=== PATIENT | male | born 1960 | race Caucasian/White ===

== ENCOUNTER 2018-11-08 17:44 | Outpatient (REF) | payer MEDICARE, SELFPAY ==
[2018-11-08 18:49] LABS: ALT 68 U/L (12-78); AST 35 U/L (15-37); Albumin 4.3 g/dL (3.4-5.0); Alkaline Phosphatase 98 U/L (46-116); Anion Gap 11.2 mmol/L (3-11); BUN 12 mg/dL (7-18); Bilirubin, Total 0.4 mg/dL (0.2-1.0); CO2 26.8 mmol/L (21.0-32.0); CREATININE 1.06 mg/dL (0.70-1.30); Calcium 9.1 mg/dL (8.5-10.1); Calculated LDL 81 mg/dL; Chloride 103 mmol/L (98-107); Cholesterol 145 mg/dL (50-200); Glucose 96 mg/dL (70-100); HDL Cholesterol 30 mg/dL (40-60); Potassium 4.3 mmol/L (3.5-5.1); Sodium 141 mmol/L (136-145); Total Protein 7.6 g/dL (6.4-8.2); Triglyceride 170 mg/dL (30-150)
== END 2018-11-08 18:04 ==
LOC: NCHCN 17:44
PROVIDERS: PCP Nurse Practitioner; Visit Provider Nurse Practitioner
DX: E78.5 Hyperlipidemia, unspecified (principal); I10 Essential (primary) hypertension
CPT/HCPCS: 80053; 80061; 83721

== ENCOUNTER 2019-10-25 10:15 | Outpatient (REF) | payer MEDICARE, SELFPAY ==
[2019-10-25 16:55] LABS: ALT 71 U/L (16-63); AST 37 U/L (15-37); Albumin 4.4 g/dL (3.4-5.0); Alkaline Phosphatase 87 U/L (46-116); Anion Gap 8.6 mmol/L (3-11); BUN 17 mg/dL (7-18); Bilirubin, Total 0.4 mg/dL (0.2-1.0); CO2 28.4 mmol/L (21.0-32.0); CREATININE 1.13 mg/dL (0.70-1.30); Calcium 10.1 mg/dL (8.5-10.1); Calculated LDL 96 mg/dL (<100); Chloride 102 mmol/L (98-107); Cholesterol 157 mg/dL (<200); Glucose 112 mg/dL (74-106); HDL Cholesterol 34 mg/dL (40-60); Potassium 4.7 mmol/L (3.5-5.1); Sodium 139 mmol/L (136-145); Total Protein 7.7 g/dL (6.4-8.2); Triglyceride 137 mg/dL (<150)
== END 2019-10-25 10:35 ==
LOC: NCHCN 10:15
PROVIDERS: PCP Nurse Practitioner; Visit Provider Nurse Practitioner
DX: E78.5 Hyperlipidemia, unspecified (principal); I10 Essential (primary) hypertension
CPT/HCPCS: 80053; 80061

== ENCOUNTER 2020-10-30 10:08 | Outpatient (REF) | payer MEDICARE, SELFPAY ==
[2020-10-30 21:58] LABS: Hemoglobin A1C 5.8 % (<5.7)
== END 2020-10-30 10:09 | disposition home or self-care (01) ==
LOC: NCHCN 10:08
PROVIDERS: PCP Nurse Practitioner; Visit Provider Nurse Practitioner
DX: R73.9 Hyperglycemia, unspecified; E78.5 Hyperlipidemia, unspecified; I10 Essential (primary) hypertension
CPT/HCPCS: 80053; 80061; 83036

== ENCOUNTER 2021-10-31 11:59 | Outpatient (REF) | payer MEDICARE, SELFPAY ==
[2021-10-31 15:12] LABS: ALT 51 U/L (16-63); AST 32 U/L (15-37); Albumin 4.1 g/dL (3.4-5.0); Alkaline Phosphatase 88 U/L (46-116); Anion Gap 8.2 mmol/L (3-11); BUN 20 mg/dL (7-18); Bilirubin, Total 0.4 mg/dL (0.2-1.0); CO2 29.8 mmol/L (21.0-32.0); CREATININE 1.1 mg/dL (0.70-1.30); Calcium 9.5 mg/dL (8.5-10.1); Chloride 102 mmol/L (98-107); Glucose 108 mg/dL (74-106); Potassium 4.4 mmol/L (3.5-5.1); Sodium 140 mmol/L (136-145); Total Protein 7.9 g/dL (6.4-8.2)
[2021-10-31 15:27] LABS: Calculated LDL 81 mg/dL (<100); Cholesterol 137 mg/dL (<200); HDL Cholesterol 37 mg/dL (40-60); Triglyceride 99 mg/dL (<150)
== END 2021-10-31 12:00 | disposition home or self-care (01) ==
LOC: NCHCN 11:59
PROVIDERS: PCP Nurse Practitioner; Visit Provider Nurse Practitioner Family
DX: I10 Essential (primary) hypertension (principal); F41.8 Other specified anxiety disorders; J44.9 Chronic obstructive pulmonary disease, unspecified; F17.209 Nicotine dependence, unspecified, with unspecified nicotine-induced disorders
CPT/HCPCS: 80053; 80061

== ENCOUNTER 2023-10-26 16:41 | Outpatient (REF) | payer OTHER, MEDICARE, SELFPAY ==
[2023-10-26 18:55] LABS: Abs Immature Grans 0.02 10^3/uL (0.0-0.06); Absolute Basophil Count 0.09 10^3/uL (0.0-0.2); Absolute Eosinophil Count 0.17 10^3/uL (0.0-0.7); Absolute Lymphocyte Count 2.65 10^3/uL (1.2-3.4); Absolute Neutrophil Count 5.04 10^3/uL (1.2-6.7); Basophils % 1.1 %; HCT 50.3 % (40.0-50.0); HGB 16.3 g/dL (13.5-17.5); Immature Grans % 0.2 %; Lymphocytes % 31.3 %; MCH 31.6 pg (27.0-33.0); MCHC 32.4 % (32.0-36.0); MCV 98 fL (80-95); MPV 11.4 fL (8.0-11.0); Monocytes % 5.9 %; Neutrophils % 59.5 %; Platelet Count 164 10^3/uL (130-400); RBC 5.16 10^6/uL (4.36-5.78); RDW 12.9 % (11.8-14.1); RDW-SD 46.4 fL; WBC 8.47 10^3/uL (4.4-10.8)
[2023-10-26 19:16] LABS: ALT 39 U/L (16-63); AST 29 U/L (15-37); Albumin 4.2 g/dL (3.4-5.0); Alkaline Phosphatase 83 U/L (46-116); Anion Gap 7.8 mmol/L (3-11); BUN 12 mg/dL (7-18); Bilirubin, Total 0.49 mg/dL (0.2-1.0); CO2 29.2 mmol/L (21.0-32.0); CREATININE 1.1 mg/dL (0.70-1.30); Calcium 9.5 mg/dL (8.5-10.1); Chloride 104 mmol/L (98-107); Glucose 96 mg/dL (74-106); Potassium 4.1 mmol/L (3.5-5.1); Sodium 141 mmol/L (136-145); Total Protein 7.8 g/dL (6.4-8.2)
[2023-10-26 19:21] LABS: Hemoglobin A1C 5.7 % (<5.7)
== END 2023-10-26 16:42 | disposition home or self-care (01) ==
LOC: NCHCN 16:41
PROVIDERS: PCP Nurse Practitioner Family; Visit Provider Nurse Practitioner Family
DX: Z01.89 Encounter for other specified special examinations (principal)
CPT/HCPCS: 80053; 83036; 85025

== ENCOUNTER 2023-11-13 06:08 | Day surgery (SDC) | payer OTHER, MEDICARE, SELFPAY ==
--- OUTSIDE RECORDS SUMMARY | 2023-11-13 06:10 | XMS_ITS | Data Portability ---
Author Organization [facility] Address [address] [place] [address] Care Team Providers Care Search Engine Optimization Analyst Name Role Phone YADIRA LOUIS Primary Care Provider Assessment Encounter Date Assessment Date Assessment LastModified by Organization Details LastModified Time 07/07/2023 07/07/2023 Extensive review and discussion today regarding COPD, treatment, the need for further evaluation, and the poor long-term prognosis. Poorly controlled COPD likely contributing to elevated BP, and recurrent anxiety attacks. [email or web address] Not available 07/07/2023 10:35:35 Plan of Treatment Reminders Order Date Submit Date Provider Last Modified By Organization Details Last Modified Time Details Appointments Telehealt h 30 2023 08:00A M Yadira Louis Not available Not available Not available Lab CMP, serum or plasma - 1 mint and 1 lav tube collected from right ac. pt tolerated well. 2023 024 [facility] (Registration ), [address] [place] [address] [place], [address], 10/26/2023 19:21:59 CBC w/ auto diff - 1 mint and 1 lav tube collected from right ac. pt tolerated well. 2023 024 [facility] (Registration ), [address] [place] [address] [place], [address], 10/26/2023 19:00:56 HbA1c (hemoglob in A1c), blood - 1 mint and 1 lav tube collected from right ac. pt tolerated well. 2023 024 [facility] (Registration ), [address] [place] [address] , [place], [address], 10/29/2023 20:19:04 Referral palliativ e medicine referral - Palliativ e medicine referral for further evaluatio n and focus on quality of life care. Sudhir is adamant about avoiding further pulmonary evaluatio n and diagnosti c testing. 2023 [facility], [address] [place] [address] , [facility], [place], [address], 07/21/2023 09:10:45 Procedures None recorded. Surgeries None recorded. Imaging None recorded. Medication Orders alprazola m 0.25 mg tablet 2023 [facility], [address] [place], [address], 10/26/2023 07:39:26 lisinopri l 20 mg tablet 2023 [facility], [address] [place], [address], 07/07/2023 10:53:32 hydroxyzi ne HCl 50 mg tablet 2023 [facility], [address] [facility], [address], [place], [address], 10/26/2023 15:13:49 atorvasta tin 10 mg tablet 2023 [facility], [address] [place], [address], 07/07/2023 10:53:34 albuterol sulfate HFA 90 mcg/actua tion aerosol inhaler 2023 [facility], [address] [facility], [address], [place], [address], 07/07/2023 11:01:22 ipratropi um 0.5 mg-albute rol 3 mg (2.5 mg base)/3 mL nebulizat ion soln 2023 [facility], [address] [place] [address], [address], [place], [address], 07/07/2023 11:01:18 Symbicort 160 mcg-4.5 mcg/actua tion HFA aerosol inhaler 2023 024 [facility], [address] [place] [address], [address], [place], [address], 07/07/2023 11:01:23 Patient TargetsNo targets recorded. Patient Instructions Encounter Date Encounter Id Patient Instructions Last Modified By Organization Details Last Modified Time 07/07/2023 [id number] 6 month telephone visit follow up. Medications refilled for 1 year. Palliative care consult placed - expect a phone call within the next 3 weeks to schedule an appointment. [email or web address] Not available 07/07/2023 11:13:14 10/26/2023 [id number] learning about high blood sugar [email or web address] Not available 10/29/2023 20:50:01 learning about anxiety disorders [email or web address] Not available 10/29/2023 20:50:01 Reason for Referral Palliative Medicine Referral for Chronic obstructive pulmonary disease Palliative medicine referral for further evaluation and focus on quality of life care. Sudhir is adamant about avoiding further pulmonary evaluation and diagnostic testing. Referring Physician: Yadira Louis, Family Medicine, Encounter Date: 07/07/2023 Results Created Date Observation Date Name Description Value Unit Range Abnormal Flag LastModifiedBy Organization Detail LastModifiedTime 10/26/19 24 10/26/2023 COMPL ETE BLOOD COUNT W/DIF F WBC 8.47 10_3/ uL 4.4-10 .8 normal Not Available [facility] [address] [facility] [place], [address] 10/26/2023 19:00:56 10/26/19 24 10/26/2023 COMPL ETE BLOOD COUNT W/DIF F RBC 5.16 10_6/ uL 4.36-5 .78 normal Not Available [address] [place], [address] 10/26/2023 19:00:56 10/26/19 24 10/26/2023 COMPL ETE BLOOD COUNT W/DIF F HGB 16.3 g/dL 13.5-1 7.5 normal Not Available [address] [place], [address] 10/26/2023 19:00:56 10/26/19 24 10/26/2023 COMPL ETE BLOOD COUNT W/DIF F HCT 50.3 % 40.0-5 0.0 high Not Available [address] [place], [address] 10/26/2023 19:00:56 10/26/1910/26/2023 COMPL ETE BLOOD COUNT W/DIF F MCV 98 fL 80-95 high Not Available [address] [place], [address] 10/26/2023 19:00:56 10/26/19 24 10/26/2023 COMPL ETE BLOOD COUNT W/DIF F MCH 31.6 pg 27.0-3 3.0 normal Not Available [address] [place], [address] 10/26/2023 19:00:56 10/26/19 24 10/26/2023 COMPL ETE BLOOD COUNT W/DIF F MCHC 32.4 % 32.0-3 6.0 normal Not Available [address] [place], [address] 10/26/2023 19:00:56 10/26/19 24 10/26/2023 COMPL ETE BLOOD COUNT W/DIF F RDW 12.9 % 11.8-1 4.1 normal Not Available [address] [place], [address] 10/26/2023 19:00:56 10/26/19 24 10/26/2023 COMPL ETE BLOOD COUNT W/DIF F platelet count 164 10_3/ uL 130-40 0 normal Not Available [address] [place], [address] 10/26/2023 19:00:56 10/26/19 24 10/26/2023 COMPL ETE BLOOD COUNT W/DIF F MPV 11.4 fL 8.0-11 .0 high Not Available [address] [place], [address] 10/26/2023 19:00:56 10/26/1910/26/2023 COMPL ETE BLOOD COUNT W/DIF F neutrophils % 59.5 % Not Available [address] [place], [address] 10/26/2023 19:00:56 10/26/19 24 10/26/2023 COMPL ETE BLOOD COUNT W/DIF F lymphocytes % 31.3 % Not Available [address] [place], [address] 10/26/2023 19:00:56 10/26/1910/26/2023 COMPL ETE BLOOD COUNT W/DIF F monocytes % 5.9 % Not Available [address] [place], [address] 10/26/2023 19:00:56 10/26/1910/26/2023 COMPL ETE BLOOD COUNT W/DIF F eosinophils % 2.0 % Not Available [address] [place], [address] 10/26/2023 19:00:56 10/26/1910/26/2023 COMPL ETE BLOOD COUNT W/DIF F basophils % 1.1 % Not Available [address] [place], [address] 10/26/2023 19:00:56 10/26/1910/26/2023 COMPL ETE BLOOD COUNT W/DIF F immature grans % 0.2 % Not Available [address] [place], [address] 10/26/2023 19:00:56 10/26/19 24 10/26/2023 COMPL ETE BLOOD COUNT W/DIF F nucleated RBC 0.0 % 0.0-0. 3 normal Not Available [address] [place], [address] 10/26/2023 19:00:56 07/01/20 24 10/26/2023 COMPL ETE BLOOD COUNT W/DIF F absolute neutrophil count 5.04 10_3/ uL 1.2-6. 7 normal Not Available [address] [place], [address] 10/26/2023 19:00:56 10/26/19 24 10/26/2023 COMPL ETE BLOOD COUNT W/DIF F absolute lymphocyte count 2.65 10_3/ uL 1.2-3. 4 normal Not Available [address] [place], [address] 10/26/2023 19:00:56 10/26/19 24 10/26/2023 COMPL ETE BLOOD COUNT W/DIF F absolute monocyte count 0.50 10_3/ uL 0.1-0. 8 normal Not Available [address] [place], [address] 10/26/2023 19:00:56 10/26/19 24 10/26/2023 COMPL ETE BLOOD COUNT W/DIF F absolute eosinophil count 0.17 10_3/ uL 0.0-0. 7 normal Not Available [address] [place], [address] 10/26/2023 19:00:56 10/26/1910/26/2023 COMPL ETE BLOOD COUNT W/DIF F absolute basophil count 0.09 10_3/ uL 0.0-0. 2 normal Not Available [address] [place], [address] 10/26/2023 19:00:56 10/26/19 24 10/26/2023 COMPR EHENS MARYSE METAB OLIC PANEL calcium 9.5 mg/dL 8.5-10 .1 normal Not Available [address] [place], [address] 10/26/2023 19:21:59 10/26/1910/26/2023 COMPR EHENS MARYSE METAB OLIC PANEL glucose 96 mg/dL 74-106 normal Not Available Erik bray [address] [place], [address] 10/26/2023 19:21:59 10/26/19 24 10/26/2023 COMPR EHENS MARYSE METAB OLIC PANEL BUN 12 mg/dL 7-18 normal Not Available [address] [place], [address] 10/26/2023 19:21:59 10/26/19 24 10/26/2023 COMPR EHENS MARYSE METAB OLIC PANEL creatinine 1.1 mg/dL 0.70-1 .30 normal Not Available [address] [place], [address] 10/26/2023 19:21:59 10/26/19 24 10/26/2023 COMPR EHENS MARYSE METAB OLIC PANEL estimated GFR 75.90 mL/min /1.73m 2 Not Available [address] [place], [address] 10/26/2023 19:21:59 10/26/19 24 10/26/2023 COMPR EHENS MARYSE METAB OLIC PANEL total protein 7.8 g/dL 6.4-8. 2 normal Not Available [address] [place], [address] 10/26/2023 19:21:59 10/26/19 24 10/26/2023 COMPR EHENS MARYSE METAB OLIC PANEL albumin 4.2 g/dL 3.4-5. 0 normal Not Available [address] [place], [address] 10/26/2023 19:21:59 10/26/19 24 10/26/2023 COMPR EHENS MARYSE METAB OLIC PANEL bilirubin, total 0.49 mg/dL 0.2-1. 0 normal Not Available [address] [place], [address] 10/26/2023 19:21:59 10/26/19 24 10/26/2023 COMPR EHENS MARYSE METAB OLIC PANEL alk phos 83 U/L 46-116 normal Not Available [address] [place], [address] 10/26/2023 19:21:59 10/26/19 24 10/26/2023 COMPR EHENS MARYSE METAB OLIC PANEL sodium 141 mmol/ L 136-14 5 normal Not Available [address] [place], [address] 10/26/2023 19:21:59 10/26/19 24 10/26/2023 COMPR EHENS MARYSE METAB OLIC PANEL potassium 4.1 mmol/ L 3.5-5. 1 normal Not Available [address] [place], [address] 10/26/2023 19:21:59 10/26/19 24 10/26/2023 COMPR EHENS MARYSE METAB OLIC PANEL chloride 104 mmol/ L 98-107 normal Not Available [address] [place], [address] 10/26/2023 19:21:59 10/26/19 24 10/26/2023 COMPR EHENS MARYSE METAB OLIC PANEL CO2 29.2 mmol/ L 21.0-3 2.0 normal Not Available [address] [place], [address] 10/26/2023 19:21:59 10/26/19 24 10/26/2023 COMPR EHENS MARYSE METAB OLIC PANEL anion gap 7.8 mmol/ L 3-11 normal Not Available [address] [place], [address] 10/26/2023 19:21:59 10/26/19 24 10/26/2023 COMPR EHENS MARYSE METAB OLIC PANEL AST 29 U/L 15-37 normal Not Available [address] [place], [address] 10/26/2023 19:21:59 10/26/19 24 10/26/2023 COMPR EHENS MARYSE METAB OLIC PANEL ALT 39 U/L 16-63 normal Not Available [address] [place], [address] 10/26/2023 19:21:59 10/26/19 24 10/26/2023 HEMOG LOBIN A1C hemoglobin A1C 5.7 % <5.7 Not Available [facility] (Registration ) [address] [place] [address] [place], [address], 10/26/2023 19:23:59 Result Notes None recorded. Problems Name Status Onset Date Resolution Date Notes Provider Name and Address Organization Details Recorded Time Anxiety disorder Active KHRIS juarez, [facility] 4 11:31:12 Essential hypertension Active 016 KHRIS juarez, [facility] 4 11:31:45 Neck pain Active ANNY JOHNSON [address], [facility] [address] , [facility] 4 10:35:08 Arthralgia of the ankle and/or foot Active 016 ANNY JOHNSON [address], [facility] [id number] [place] [address] 4 10:34:44 Chronic obstructive pulmonary disease Active 016 KHRIS juarez, [facility] 4 11:31:33 Nicotine dependence Completed 016 07/07/2023 ANNY JOHNSON [address], [facility] [address] , [facility] 4 10:33:56 Panic disorder with agoraphobia Active 016 KHRIS juarez, [facility] 4 11:32:21 Hyperlipidemia Active 017 KHRIS juarez, [facility] 4 11:32:03 Adult health examination Completed 018 09/10/2017 Problem Code: Z00.00; Problem Code Type: ICD-10; ANNY J[address] Dr, [facility] [address] , [facility] 4 10:34:39 At risk - finding Completed 019 07/07/2023 2 - Comments only - Yadira MCCORMICK - Refuses referral to sleep medicine, pulmonolo gy, or home sleep study at this time. Problem Code: Z91.89; Problem Code Type: ICD-10; AN[address], [facility] [address] , [facility] 4 10:36:47 Adult health examination Active [address], [facility] [address] , [facility] 4 10:34:39 Tobacco use cessation education Active [address], [facility] [address] , [facility] 4 10:35:05 Hyperglycemia Active 021 KHRIS juarez, [facility] 4 11:31:56 Reduced mobility Active 023 KHRIS juarez, [facility] 4 11:32:29 Therapeutic drug monitoring assay Completed 023 07/07/[address], [facility] [id number] [place] [address] 4 10:34:26 Panic disorder Completed 016 05/24/2015 Problem Code: F41.0; Problem Code Type: ICD-10; Not Available [facility] 3 04:31:20 Hyperlipidemia screening Completed 016 12/20/2015 Problem Code: Z13.220; Problem Code Type: ICD-10; Not Available [facility] 3 04:31:22 Tobacco dependence, continuous Active 024 ~60+ pk/year hx (started age 16, 1-2 pk daily avg, current smoker) ANNY [address] Dr, [facility] [address] , [facility] 4 10:34:23 At increased risk of apnea Active 024 YADIRA LOUIS, ANNY [address], [place], [address] , [facility] 4 10:36:50 Bilateral cataracts Active 024 YADIRA LOUIS, ANNY [address], [place], [address] , [facility] 4 15:34:50 Problem Notes None recorded. Medical Equipment None Reported. Allergies No known drug allergies Medications Name Sig Start Date Stop Date Status Note LastModified by Organization Details LastModified Time terbinafine HCl 1 % topical cream Apply to affected area twice daily 06/29 completed Not Available Not Available Not Available Qvar 80 mcg/actuati on Metered Aerosol oral inhaler 2 puffs twice daily. 2015 active Not Available Not Available Not Avai lable ipratropium 0.5 mg-albutero l 3 mg (2.5 mg base)/3 mL nebulizatio n soln Inhale the contents of 1 vial using nebulizer four times a day as needed for wheezing. 2023 active Not Available Not Available Not Avai lable atorvastati n 10 mg tablet TAKE ONE TABLET BY MOUTH EVERY NIGHT active Not Available Not Available No t Available morphine concentrate 100 mg/5 mL (20 mg/mL) oral solution TAKE 0.25ML BY MOUTH EVERY 3 HOURS NEEDED FOR PAIN +MAX 2ML PER DAY+ 10/25 completed Not Available Not Available Not Available lisinopril 20 mg tablet TAKE ONE TABLET BY MOUTH EVERY DAY active Not Available Not Available No t Available hydroxyzine HCl 50 mg tablet Take 1 tablet every day by oral route at bedtime. 10/25 completed Not Available Not Available Not Available melatonin 3 mg tablet Take 1 tablet by mouth once a day 10/25 completed Not Available Not Available Not Available aspirin 81 mg tablet,jose eduardo yed release Take 1 tablet by mouth once a day active Not Available Not Available No t Available Serevent Diskus 50 mcg/dose powder for inhalation Inhale 1 puff by mouth every 12 hours 07/14 completed Not Available Not Available Not Available alprazolam 0.5 mg tablet TAKE ONE TABLET BY MOUTH TWICE A DAY NEEDED FOR ANXIETY active Not Available Not Available No t Available alprazolam 0.25 mg tablet TAKE ONE TABLET BY MOUTH EVERY DAY NEEDED 10/25 completed Not Available Not Available Not Available Vitamin D3 10 mcg (400 unit) tablet Take 1 tablet by mouth once a day active Not Available Not Available No t Available hydroxyzine HCl 25 mg tablet 1-2 tablet by mouth at bedtime as needed 10/25 completed Not Available Not Available Not Available albuterol sulfate HFA 90 mcg/actuati on aerosol inhaler Inhale 1 to 2 puffs by mouth every 4 hours as needed for wheezing (QTY 2 to last at least 28 days) 2023 active Not Available Not Available Not Avai lable Microspacer use with symbicort and albuterol active Not Available Not Available No t Available Flovent HFA 110 mcg/actuati on aerosol inhaler Inhale 2 puffs by mouth twice daily 07/14 completed Not Available Not Available Not Available Advair HFA 230 mcg-21 mcg/actuati on aerosol inhaler Inhale 2 puff using inhaler twice a day Replaces Symbicort 02/19 completed Not Available Not Available Not Available Symbicort 160 mcg-4.5 mcg/actuati on HFA aerosol inhaler Inhale 2 puffs by mouth twice daily 2023 active Not Available Not Available Not Avai lable magnesium glycinate Take 2 tablet by mouth at bedtime 10/25 completed Not Available Not Available Not Available Vitals Date Recorded Body height Body mass index (BMI) Body weight Body temperature Oxygen saturation Oxygen saturation in Arterial blood by Pulse oximetry Heart rate Systolic blood pressure Diastolic blood pressure Provider Name and Address Organization Details Last Updated DateTime 4 163.83 cm 36.6 kg/m2 97626.0 5 g 97.9 [degF] 94 % 94 % 103 /min 140 mm[Hg] 71 mm[Hg] Temi Foy [place] - [facility] 4 10:27:32 Date Recorded Body height Body mass index (BMI) Body weight Body temperature Oxygen saturation Oxygen saturation in Arterial blood by Pulse oximetry Heart rate Systolic blood pressure Diastolic blood pressure Provider Name and Address Organization Details Last Updated DateTime 4 163.83 cm 35.6 kg/m2 99304.5 g 98.2 [degF] 93 % 93 % 90 /min 121 mm[Hg] 73 mm[Hg] Temi Foy MA [facility], [facility] 4 15:15:04 Social History Question Answer Notes LastModified by Organizat ion Details LastModified Time Tobacco Smoking Status Current Every Day Smoker Temi Foy MA null, [facility]. 07/07/2023 10:26:04 Would You Say That, In General, Your Health Is Good [email or web address] Information not available 07/07/2023 Women Aged 18-50 - Would You Like To Become In The Next Year? (Female Patients Only) No [email or web address] Information not available 07/07/2023 How Often Does Anyone, Including Family, Physically Hurt You? Never [email or web address] Information not available 07/07/2023 How Often Does Anyone, Including Family, Insult Or Talk Down To You? Never [email or web address] Information no t available 07/07/2023 How Often Does Anyone, Including Family, Threaten You With Harm? Never [email or web address] Information not available 07/07/2023 How Often Does Anyone, Including Family, Scream Or Curse At You? Never [email or web address] Information not available 07/07/2023 Within The Past 12 Months, You Worried That Your Food Would Run Out Before You Got Money To Buy More. Never True Information n ot available 07/07/2023 Within The Past 12 Months, The Food You Bought Just Didn't Last And You Didn't Have Money To Get More. Never True [email or web address] Information not available 07/07/2023 How Hard Is It For You To Pay For The Very Basics Like Food, Housing, Medical Care, And Heating? Would You Say It Is: Not Hard At All [email or web address] Information not available 07/07/2023 In The Past 12 Months, Has Lack Of Reliable Transportation Kept You From Medical Appointments, Meetings, Work Or From Getting Things Needed For Daily Living? No [email or web address] Information not available 07/07/2023 What Is Your Housing Situation Today? I Have Housing. [email or web address] Information not available 07/07/2023 How Often In The Past Year Have You Used Marijuana (including Smoking, Vaping, Dabbing, Or Edibles)? Never [email or web address] Information not available 07/07/2023 How Often In The Past Year Have You Used Prescription Medications That Were Not Prescribed To You? Never [email or web address] Information not available 07/07/2023 How Often In The Past Year Have You Taken Your Own Prescription Medication More Than The Way It Was Prescribed Or For Different Reasons Than Its Intended Purpose? Never Information not available 07/07/2023 How Often In The Past Year Have You Used Other Drugs (for Example, Heroin, Cocaine, Meth, Salvia, Inhalants)? Never [email or web address] Information not available 07/07/2023 Have You Ever Used IV Drugs? No [email or web address] Information not available 07/07/2023 Date Of Most Recent SBINS 07/07/2023 [email or web address] Information not available 07/07/2023 What Was The Date Of Your Most Recent Tobacco Screening? 07/07/2023 [email or web address] Information n ot available 07/07/2023 How Much Tobacco Do You Smoke? 2 PPD [email or web address] Information not available 07/07/2023 Has Tobacco Cessation Counseling Been Provided? No [email or web address] Information not available 07/07/2023 Do You Or Have You Ever Used Any Other Forms Of Tobacco Or Nicotine? No [email or web address] Information not available 07/07/2023 Sex: Male Functional Status None recorded. Mental Status None recorded. Family History Relationship Description Onset Age of this Age Resolved Age Notes Unspecified Relation Family history unknown Relative: 'First Degree Blood Relative'; Medical History No medical history recorded. Immunizations Vaccine Type Date Status Provider Name and Address Organization Details Recorded Time Tdap 02/13/2022 completed Not Available [facility] 05:07:21 Influenza, split virus, quadrivalent, PF 02/13/2022 completed Not Available [facility] 03/06/2023 05:07:22 zoster recombinant 10/31/[address] [facility] 03/06/2023 05:07:24 zoster recombinant 02/20/[address] [facility] 03/06/2023 05:07:24 COVID-19, mRNA, LNP-S, PF, 100 mcg/0.5mL dose or 50 mcg/0.25mL dose 07/22/2020 completed Not Available [facility] 03/06/2023 05:07:25 COVID-19, mRNA, LNP-S, PF, 100 mcg/0.5mL dose or 50 mcg/0.25mL dose 08/19/2020 completed Not Available [facility] 03/06/2023 05:07:25 COVID-19, mRNA, LNP-S, bivalent, PF, 30 mcg/0.3 mL dose 02/20/2022 completed Not Available [facility] 03/06/20 05:07:26 pneumococcal polysaccharide PPV23 01/21/2016 completed Not Available [facility] 2022 05:07:26 Past Encounters Encounter ID Performer Location Encounter Start Date Encounter Closed Date Diagnosis/Indication Diagnosis SNOMED-CT Code [id number] YADIRA LOUIS [facility] [address] [place] [address] 07/07/2023 10:14:56 07/07/2023 11:20:29 Adult health examination 083845803 Chronic ob structive pulmonary disease 11273550 Tobacco de pendence, continuous 759183283 At [facility] ed risk of apnea 401784979 Essential hypertension 59963884 Hyperlipidemia 34353318 Panic diso rder with agoraphobia 07405709 Reduced mobility 9155887 Hyperglycemia 47914319 [id number] YADIRA LOUIS, [facility] [address] [place] [address] 10/26/2023 15:01:24 10/26/2023 15:53:54 Bilateral cataracts 62915220 Pre-surgery testing 1104 34224 Hyperlipidemia 83034078 Hyperglycemia 96627718 Chronic ob structive pulmonary disease 61482534 Anxiety disorder 4518839 06 Tobacco de pendence, continuous 297177724 Essential hypertension 46419731 Panic diso rder with agoraphobia 45091443 Health Concerns Section Related Observation LastModified by Organization Detai ls LastModified Time None Recorded Concern Status LastModified by Organization Details LastModified Time None Recorded Advance Directives Directive None Recorded Payers Encounter Date Sequence Insurance Name Policy Number Policy Harden Covered Member ID Harden Member ID Guarantor Name 07/07/2023 2 [place] [employer] Sudhir Encarnacion Cofrancesco [id number] Sudhir Encarnacion Cofrancesco 07/07/2023 1 [place] Sudhir Encarnacion Cofrancesco [id number] Sudhir Encarnacion Cofrancesco 10/26/2023 2 [place] Sudhir Encarnacion Cofrancesco [id number] Sudhir Encarnacion Cofrancesco 10/26/2023 1 [place] ONLY PPO) Sudhir Encarnacion Cofrancesco [id number] Sudhir Encarnacion Cofrancesco Notes Date Note Type Note Provider Name and Address Organization Details Recorded Time 07/07/2023 text/html HPI Notes: Sudhir presents with his spouse to [facility] for his annual wellness exam. Complex medical history to include moderate to severe COPD, anxiety (agoraphobia), hypertension, hyperlipidemia, prediabetes, and continued tobacco use. Continued challenges with respiratory status at home, however historically refuses further diagnostic evaluation. Continued tobacco use. Continues with daily inhaler use, including frequent use of his albuterol rescue inhaler. [address], [place], [address], [facility]. 07/18/2023 09:21:22 10/26/2023 text/html HPI Notes: Sudhir presents with his spouse to [facility] for Preop, tentatively scheduled for bilateral cataract surgery 719 with [facility], under general anesthesia (?). Complex medical history to include moderate to severe COPD, anxiety (agoraphobia), hypertension, hyperlipidemia, prediabetes, and continued tobacco use. Baseline shortness of breath with even basic physical exertion. Requires assistance with showering. Continued tobacco use (1-1.5 pks daily). Continues with daily inhaler use, including frequent use of his albuterol rescue inhaler. [address], [place], [address], [facility]. 10/29/2023 20:50:05
--- OUTSIDE RECORDS SUMMARY | 2023-11-13 06:10 | XMS_ITS | Continuity of Care Document ---
Author Organization [facility] Address [address] [place] [address] Care Team Providers Care Exercise Instructor Name Role Phone YADIRA LOUIS Primary Care Provider [phone] Assessment No assessment recorded. Plan of Treatment Reminders Order Date Submit Date Provider Last Modified By Organization Details Last Modified Time Details Appointments Telehealt h 30 2023 08:00A M Yadira Louis Not available Not available Not available Lab CMP, serum or plasma - 1 mint and 1 lav tube collected from right ac. pt tolerated well. 2023 024 [facility] (Registration ), [address] [place] [address] [place], [address], 10/26/2023 19:21:59 CBC w/ auto diff - 1 mint and 1 lav tube collected from right ac. pt tolerated well. 2023 024 [facility] (Registration ), [address] [place] [address] [place], [address], 10/26/2023 19:00:56 HbA1c (hemoglob in A1c), blood - 1 mint and 1 lav tube collected from right ac. pt tolerated well. 2023 024 [facility] (Registration ), [address] [place] [address] [place], [address], 10/29/2023 20:19:04 Referral None recorded. Procedures None recorded. Surgeries None recorded. Imaging None recorded. Medication Orders None recorded. Patient TargetsNo targets recorded. Patient Instructions Encounter Date Encounter Id Patient Instructions Last Modified By Organization Details Last Modified Time 10/26/2023 [id number] learning about high blood sugar [email or web address] Not available 10/29/2023 20:50:01 learning about anxiety disorders [email or web address] Not available 10/29/2023 20:50:01 Reason for Referral Palliative Medicine Referral for Chronic obstructive pulmonary disease Palliative medicine referral for further evaluation and focus on quality of life care. Sudhir is adamant about avoiding further pulmonary evaluation and diagnostic testing. Referring Physician: Yadira Louis, Family Medicine, Encounter Date: 07/07/2023 Problems Name Status Onset Date Resolution Date Notes Provider Name and Address Organization Details Recorded Time Anxiety disorder Active KHRIS juarez, [facility] 4 11:31:12 Essential hypertension Active KHRIS juarez, [facility] 4 11:31:45 Neck pain Active [address], [facility] [address] , [facility] 4 10:35:08 Arthralgia of the ankle and/or foot Active [address], [facility] [address] , [facility] 4 10:34:44 Chronic obstructive pulmonary disease Active 016 KHRIS juarez, [facility] 4 11:31:33 Nicotine dependence Completed 07/07/[address], [place], [address] , [facility] 4 10:33:56 Panic disorder with agoraphobia Active 016 KHRIS juarez, [facility] 4 11:32:21 Hyperlipidemia Active 017 KHRIS juarez, [facility]. 4 11:32:03 Adult health examination Completed 018 09/10/2017 Problem Code: Z00.00; Problem Code Type: ICD-10; [address], [facility] [id number] [place] [address] 4 10:34:39 At risk - finding Completed 019 07/07/2023 2 - Comments only - Yadira MCCORMICK - Refuses referral to sleep medicine, pulmonolo gy, or home sleep study at this time. Problem Code: Z91.89; Problem Code Type: ICD-10; [address], [facility] [id number] [place] [address] 4 10:36:47 Adult health examination Active [address], [facility] [id number] 4 10:34:39 Tobacco use cessation education Active [address], [facility] [phone] [place] [address] 4 10:35:05 Hyperglycemia Active 021 KHRIS juarez, [facility] 4 11:31:56 Reduced mobility Active 023 KHRIS juarez, [facility] 4 11:32:29 Therapeutic drug monitoring assay Completed 023 07/07/[address], [facility] [phone] [place] [address] 4 10:34:26 Panic disorder Completed 016 05/24/2015 Problem Code: F41.0; Problem Code Type: ICD-10; Not Available [facility] 3 04:31:20 Hyperlipidemia screening Completed 016 12/20/2015 Problem Code: Z13.220; Problem Code Type: ICD-10; Not Available [facility] 3 04:31:22 Tobacco dependence, continuous Active 024 ~60+ pk/year hx (started age 16, 1-2 pk daily avg, current smoker) ANNY [address], [facility] [address] , [facility] 4 10:34:23 At increased risk of apnea Active [address], [facility] [address] , [facility] 4 10:36:50 Bilateral cataracts Active 024 [address], [facility] [address] , [facility] 4 15:34:50 Problem Notes None recorded. Medical [...] Updated DateTime 4 163.83 cm 35.6 kg/m2 75930.5 g 98.2 [degF] 93 % 93 % 90 /min 121 mm[Hg] 73 mm[Hg] Temi Foy MA [facility] 4 15:15:04 Social History Question Answer Notes LastModified by Organizat ion Details LastModified Time Tobacco Smoking Status Current Every Day Smoker Temi Foy MA null, [facility] 07/07/2023 10:26:04 Would You Say That, In General, Your Health Is Good Information not available 07/07/2023 Women Aged 18-50 - Would You Like To Become In The Next Year? (Female Patients Only) No Information not available 07/07/2023 How Often Does Anyone, Including Family, Physically Hurt You? Never [email or web address] Information not available 07/07/2023 How Often Does Anyone, Including Family, Insult Or Talk Down To You? Never Information no t available 07/07/2023 How Often Does Anyone, Including Family, Threaten You With Harm? Never Information not available 07/07/2023 How Often Does Anyone, Including Family, Scream Or Curse At You? Never [email or web address] Information not available 07/07/2023 Within The Past 12 Months, You Worried That Your Food Would Run Out Before You Got Money To Buy More. Never True [email or web address] Information n ot available 07/07/2023 Within The Past 12 Months, The Food You Bought Just Didn't Last And You Didn't Have Money To Get More. Never True [email or web address] Information not available 07/07/2023 How Hard Is It For You To Pay For The Very Basics Like Food, Housing, Medical Care, And Heating? Would You Say It Is: Not Hard At All [email or web address] Information not available 07/07/2023 In The Past 12 Months, Has Lack Of Reliable Transportation Kept You From Medical Appointments, Meetings, Work Or From Getting Things Needed For Daily Living? No [email or web address] Information not available 07/07/2023 What Is Your Housing Situation Today? I Have Housing. [email or web address] Information not available 07/07/2023 How Often In The Past Year Have You Used Marijuana (including Smoking, Vaping, Dabbing, Or Edibles)? Never [email or web address] Information not available 07/07/2023 How Often In The Past Year Have You Used Prescription Medications That Were Not Prescribed To You? Never [email or web address] Information not available 07/07/2023 How Often In The Past Year Have You Taken Your Own Prescription Medication More Than The Way It Was Prescribed Or For Different Reasons Than Its Intended Purpose? Never [email or web address] Information not available 07/07/2023 How Often In The Past Year Have You Used Other Drugs (for Example, Heroin, Cocaine, Meth, Salvia, Inhalants)? Never [email or web address] Information not available 07/07/2023 Have You Ever Used IV Drugs? No [email or web address] Information not available 07/07/2023 Date Of Most Recent SBINS 07/07/2023 Information not available 07/07/2023 What Was The Date Of Your Most Recent Tobacco Screening? 07/07/2023 [email or web address] Information n ot available 07/07/2023 How Much Tobacco Do You Smoke? 2 PPD Information not available 07/07/2023 Has Tobacco Cessation Counseling Been Provided? No [email or web address] Information not available 07/07/2023 Do You Or Have You Ever Used Any Other Forms Of Tobacco Or Nicotine? No [email or web address] Information not available 07/07/2023 Sex: Male Functional Status None recorded. Mental Status None recorded. Family History Relationship Description Onset Age of this Age Resolved Age Notes Unspecified Relation Family history unknown Relative: 'First Degree Blood Relative'; Medical History No medical history recorded. Immunizations Vaccine Type Date Status Provider Name and Address Organization Details Recorded Time Tdap 02/13/2022 completed Not Available [facility] 05:07:21 Influenza, split virus, quadrivalent, PF 02/13/2022 completed Not Available [facility] 03/06/2023 05:07:22 zoster recombinant 10/31/[address] [facility] 03/06/2023 05:07:24 zoster recombinant 02/20/[address] [facility] 03/06/2023 05:07:24 COVID-19, mRNA, LNP-S, PF, 100 mcg/0.5mL dose or 50 mcg/0.25mL dose 07/22/2020 completed Not Available [facility] 03/06/2023 05:07:25 COVID-19, mRNA, LNP-S, PF, 100 mcg/0.5mL dose or 50 mcg/0.25mL dose 08/19/2020 completed Not Available [facility] 03/06/2023 05:07:25 COVID-19, mRNA, LNP-S, bivalent, PF, 30 mcg/0.3 mL dose 02/20/2022 completed Not Available [facility] 03/06/20 05:07:26 pneumococcal polysaccharide PPV23 01/21/2016 completed Not Available [facility] 2022 05:07:26 Past Encounters Encounter ID Performer Location Encounter Start Date Encounter Closed Date Diagnosis/Indication Diagnosis SNOMED-CT Code [id number] ANNY J[address] [place] [address] 10/26/2023 15:01:24 10/26/2023 15:53:54 Bilateral cataracts 20315029 Pre-surgery testing 1104 05560 Hyperlipidemia 98078406 Hyperglycemia 95583619 Chronic ob structive pulmonary disease 46843330 Anxiety disorder 2175937 06 Tobacco de pendence, continuous 184237015 Essential hypertension 85620440 Panic diso rder with agoraphobia 98498182 Health Concerns Section Related Observation LastModified by Organization Detai ls LastModified Time None Recorded Concern Status LastModified by Organization Details LastModified Time None Recorded Payers Encounter Date Sequence Insurance Name Policy Number Policy Harden Covered Member ID Harden Member ID Guarantor Name 10/26/2023 2 [place] [employer] Sudhir Shashank Cofrancesco [id number] Sudhir Encarnacion Cofrancesco 10/26/2023 1 [id number] PPO) Sudhir Encarnacion Cofrancesco [id number] Sudhir Fletcher Notes Date Note Type Note Provider Name and Address Organization Details Recorded Time 10/26/2023 text/html HPI Notes: Sudhir presents with his spouse to [facility] today for Preop, tentatively scheduled for bilateral cataract surgery 719 with [facility], under general anesthesia (?). Complex medical history to include moderate to severe COPD, anxiety (agoraphobia), hypertension, hyperlipidemia, prediabetes, and continued tobacco use. Baseline shortness of breath with even basic physical exertion. Requires assistance with showering. Continued tobacco use (1-1.5 pks daily). Continues with daily inhaler use, including frequent use of his albuterol rescue inhaler. YADIRA LOUIS, [employer] [address], [place], [address], [facility]. 10/29/2023 20:50:05
[2023-11-13 06:25] VITALS: BP 139/85; PULSE 98; RESP 20; TEMP 36.4; O2SAT 92
--- NOTE | 2023-11-13 06:52 | ANES.PREOP_ITS ---
General Info Date of Service Date Performed: 11/13/23 Height: 5 ft 4 in Weight: 93.2 kg Body Mass Index (BMI): 35.2 Surgical Procedure: Operation Date: 11/13/23 07:40 Proposed Procedure Side Surgeon p Cataract Extraction with IOL Bilateral Bilateral Valerio Merrill MD Meds Allergies and Home Medications Allergies Allergy/AdvReac Type Severity Reaction Status Date / Time No Known Allergies Allergy Verified 11/13/23 06:25 Home Medication ?Medication ?Instructions ?Recorded albuterol sulfate 90 mcg/actuation 1 - 2 puff inhalation Q4H PRN 07/23/23 aerosol inhaler aspirin 81 mg tablet,delayed 81 mg PO DAILY 07/23/23 release (Adult Low Dose Aspirin) atorvastatin 10 mg tablet 10 mg PO QHS 07/23/23 budesonide-formoterol HFA 160 2 puff inhalation BID 07/23/23 mcg-4.5 mcg/actuation aerosol inhaler (Symbicort) cholecalciferol (vitamin D3) 10 10 mcg PO DAILY 07/23/23 mcg (400 unit) capsule ipratropium 0.5 mg-albuterol 3 mg 3 ml inhalation QID PRN 07/23/23 (2.5 mg base)/3 mL nebulization soln lisinopril 20 mg tablet 20 mg PO QAM 07/23/23 morphine concentrate 100 mg/5 mL 5 mg (0.25 mL) PO Q3H PRN pain #30 08/07/23 (20 mg/mL) oral solution mL alprazolam 0.5 mg tablet 0.5 mg PO BID PRN anxiety #60 tabs 10/23/23 Current Visit Medications: Current Medications Generic Name Dose Route Start Last Admin Trade Name Freq PRN Reason Stop Dose Admin Acetaminophen 1,000 mg 11/13/23 06:00 Acetaminophen 500 Mg Tab PO 12/13/23 05:59 Q4H PRN PRN Balanced Salt Solution 500 ml 11/13/23 06:00 Balanced Salt Soln.-Plus 500 Ml Bag OP 12/13/23 05:59 DIRECTED [facility] Ringer's Solution 1,000 mls @ 20 mls/hr 11/13/23 06:00 IV 11/13/23 23:59 INFUSION VERNA IV Miscellaneous Supplies 1 each 11/13/23 06:00 Iv Access IV 11/13/23 23:59 DIRECTED [facility] Miscellaneous Medication 0 ml 11/13/23 06:00 Prednisolone 1%, Moxifloxacin 0.5%, Bromfenac 0.09% 5ml Btl OU 12/13/23 05 :59 DIRECTED [facility] Miscellaneous Medication 0 ml 11/13/23 06:00 Tropicam./Phenyleph. (1/2.5%) 10 Ml Btl OU 12/13/23 05:59 DIRECTED VERNA Sodium Chloride 0 ml 11/13/23 06:00 Normal Saline Flush 10 Ml Syr IV 11/13/23 23:59 PRN PRN Sodium Chloride 0 ml 11/13/23 06:00 Normal Saline 10 Ml Vial IJ 11/13/23 23:59 DIRECTED PRN Sterile Water 0 ml 11/13/23 06:00 Water,Injection,Sterile 10 Ml Vial IJ 11/13/23 23:59 DIRECTED PRN Tetracaine HCl 0 ml 11/13/23 06:00 Tetracaine 0.5% 4 Ml Btl OU 12/13/23 05:59 DIRECTED [facility] PFSH Active Problems Active Problems: Problem Status Onset Code Posterior subcapsular age-related cataract, right eye Acute H25.041 Cortical age-related cataract, left eye Acute H25.012 Cortical age-related cataract, right eye Acute H25.011 Nuclear age-related cataract, right eye Acute H25.11 Nuclear age-related cataract, left eye Acute H25.12 Palliative care patient Acute Z51.5 Chronic pain Chronic G89.29 Chronic obstructive pulmonary disease, unspecified Chronic J44.9 Medical History Medical History Reduced mobility Neck pain Hyperglycemia Hypertension Hyperlipidemia Panic disorder with agoraphobia Joint pain of ankle and foot Anxiety disorder Tobacco dependence At risk for apnea Medical History Comments:: Ok'd to proceed per JJ 11/13/23 - pt/SO reports that pt can be upset/emotional/angry when waking from anesthesia. If SO is present she can calm him down 11/13/23: smoked 4 cigarettes prior to DSU Surgical History Surgical History S/P cervical spinal fusion anterior cervical fusion from C4-C7 in 1999 Status post open reduction with internal fixation (ORIF) of fracture of ankle right H/O decompression of ulnar nerve left History of esophagogastroduodenoscopy (EGD) 11/2006 Tobacco Smoking/Tobacco Use Status: Current every day Tobacco Type: cigarettes Smoking packs per day: 2 Smoking cigarettes per day: 40.0 Alcohol Alcohol Intake: current Alcohol intake frequency: holidays/special occasions only Alcohol type: beer Substance Use Substance use: Never Substance use type: does not use Details: 11/13/23 - used marijuana 1 week ago Vital Signs and Lab Results Vital Signs Most Recent Vital Signs in EMR: Most Recent Vital Signs Temp Pulse Resp BP Pulse Ox 36.4 C L 98 H 20 139/85 92 11/13/23 06:25 11/13/23 06:25 11/13/23 06:25 11/13/23 06:25 11/13/23 06:25 Lab Results Blood Type / Crossmatch: No Data to Display Complete Blood Count: White Blood Count 8.47 10^3/uL (4.4-10.8) 10/26/23 15:50 Red Blood Count 5.16 10^6/uL (4.36-5.78) 10/26/23 15:50 Hemoglobin 16.3 g/dL (13.5-17.5) 10/26/23 15:50 Hematocrit 50.3 % (40.0-50.0) H 10/26/23 15:50 Platelet Count 164 10^3/uL (130-400) 10/26/23 15:50 Complete Metabolic Panel: Sodium 141 mmol/L (136-145) 10/26/23 15:50 Potassium 4.1 mmol/L (3.5-5.1) 10/26/23 15:50 Chloride 104 mmol/L (98-107) 10/26/23 15:50 Carbon Dioxide 29.2 mmol/L (21.0-32.0) 10/26/23 15:50 BUN 12 mg/dL (7-18) 10/26/23 15:50 Creatinine 1.1 mg/dL (0.70-1.30) 10/26/23 15:50 Est GFR (CKD-EPI 2020) 75.90 (mL/min/1.73m2) 10/26/23 15:50 Calcium 9.5 mg/dL (8.5-10.1) 10/26/23 15:50 Albumin 4.2 g/dL (3.4-5.0) 10/26/23 15:50 Glucose 96 mg/dL (74-106) 10/26/23 15:50 Hemoglobin A1c 5.7 % (<5.7) 10/26/23 15:50 Liver Function Panel: Alanine Aminotransferase (ALT/SGPT) 39 U/L (16-63) 10/26/23 15: 50 Aspartate Amino Transf (AST/SGOT) 29 U/L (15-37) 10/26/23 15:50 Coagulation Panel: No Data to Display Cardiac Panel: No Data to Display Arterial Blood Gas: No Data to Display Venous Blood Gas: No Data to Display Pancreas Panel: No Data to Display Thyroid Panel: No Data to Display Infectious Disease: No Data to Display Blood Cultures: No Data to Display Toxicology Panel: No Data to Display Anesthesia Assessment and Plan Anesthesia History Personal History: No History of Anesthesia Complications Family History: No Family History of Anesthesia Complications Exercise Tolerance Exercise Tolerance: Metabolic Equivalents>4 Pertinent Negatives Pertinent Negatives: No Symptoms of GERD, No Major Cardiovascular Symptoms or Complaints and No History of CVA/TIA Cardiac & Pulmonary Exam Cardiac Exam: Normal S1/S2 Heart Sounds Pulmonary Exam: Clear Bilateral Breath Sounds Implantable Cardiac Device Does patient have a Pacemaker or an ICD?: No Airway Exam Known Difficult Airway: No Mallampati Class: 2 Mouth Opening: Normal (> 3cm) Thyromental Distance: Greater than 3 cm Neck Range of Motion: Full ROM and History of Cervical Fusion Neck Circumference: Normal Teeth Condition: Edentulous ASA Classification ASA Score: ASA 4 Emergency Case?: No NPO Status NPO Status: NPO Clears >2 hours, Solids >8 hours Anesthesia Plan Resuscitation Status: DNR Fully Suspended During Perioperative Period Anesthesia Technique: MAC Anesthesia Airway Planned: Natural Airway Monitors Used: Standard Monitors Preoperative Comments:: Pt. very anxious this morning, does not like to be outside his house and especially not in medical facilities. Discussed MAC vs GA for surgery and he is amenable to trying our usual method. We will start an IV in case supplementation is needed. Discussed high risk of GA given presumed severe COPD ( recommends home oxygen but pt declines). He took all respiratory medications as prescribed and looks better than previously reported, walked in today with minimal SOB, none by the time I saw him. He is very anxious and will receive 2 MKO's with GA as our last alternative after discussing increased pulmonary risk to include prolonged ventilation. Also discussed that severe COPD can effect his heart and pHTN but since he is palliative and does not wish for any additional therapies, this is another unknown. Only proceeding with this case to improve quality of life, despite risks which patient is motivated to do. Marisela present for all conversations and supports moving forward understanding all risks explained.
[2023-11-13] MEDS: Lactated Ringers 1,000 ML 20 ML IV (07:29)
[2023-11-13] MEDS: Povidone-Iodine Ophth 30 ML BTL (07:40)
[2023-11-13] MEDS: Tetracaine 0.5% 4 ML BTL OU (07:40)
[2023-11-13] MEDS: Balanced Salt Soln.-PLUS 500 ML BAG OP (07:53)
[2023-11-13] MEDS: Lidocaine 1% Pres-Free 5 ML VIAL (07:54)
[2023-11-13] MEDS: Duovisc Viscoelastic System EACH 1 EACH (07:54)
[2023-11-13 07:55] VITALS: BMI 35.2
[2023-11-13] MEDS: Trypan Blue 0.06% 0.5 ML SYR (08:00)
--- NOTE | 2023-11-13 08:27 | W.PM.DSUDISC ---
Date of service: 11/13/23 Time of Service: 08:27 Discharge Plan Disposition Patient Disposition: Home Discharge Details Attending Provider: Valerio Merrill Primary Care Provider: YADIRA LOUIS Home Meds and New Rx's Prescriptions: No Action morphine concentrate 100 mg/5 mL (20 mg/mL) solution 5 mg PO Q3H MDD 40 mg PRN (Reason: pain) Qty: 30 0RF Rx Instructions: palliative care patient alprazolam 0.5 mg tablet 0.5 mg PO BID PRN (Reason: anxiety) Qty: 60 4RF Rx Instructions: Palliative care patient albuterol sulfate 90 mcg/actuation HFA aerosol inhaler 1 - 2 puff inhalation Q4H PRN Rx Instructions: for wheezing aspirin [Adult Low Dose Aspirin] 81 mg tablet,delayed release (DR/EC) 81 mg PO DAILY atorvastatin 10 mg tablet 10 mg PO QHS ipratropium-albuterol 0.5 mg-3 mg(2.5 mg base)/3 mL solution for nebulization 3 ml inhalation QID PRN Rx Instructions: for wheezing lisinopril 20 mg tablet 20 mg PO QAM budesonide-formoterol [Symbicort] 160-4.5 mcg/actuation HFA aerosol inhaler 2 puff inhalation BID cholecalciferol (vitamin D3) 10 mcg (400 unit) capsule 10 mcg PO DAILY Discharge Instructions Stand Alone Forms: DSU Post-Op Cataract, Roger Troncoso (DSU) Discharge Orders Discharge Orders: Discharge Order (Routine); Ordered 11/13/23 Ordered By: Valerio Merrill DS: Diagnosis Discharge Diagnosis (1) Posterior subcapsular age-related cataract, right eye: Status: Resolved (2) Cortical age-related cataract, right eye: Status: Resolved (3) Nuclear age-related cataract, right eye: Status: Resolved
[2023-11-13 08:28] VITALS: BP 125/76; PULSE 93; RESP 18; TEMP 36.1; O2SAT 93
--- NOTE | 2023-11-13 08:28 | W.PM.OP ---
Date of service: 11/13/23 Time of Service: 08:28 Operative Note Operative Note DATE OF PROCEDURE: 11/13/23 PRE-OP DIAGNOSIS: Dense nuclear/cortical/posterior subcapsular cataract, right eye POST-OP DIAGNOSIS: same PROCEDURE: Cataract extraction using phacoemulsification with intraocular lens implant, right eye SURGEON: Valerio Merrill ANESTHESIA TYPE: Local By Surgeon and MAC Refer to Anesthesia Record ESTIMATED BLOOD LOSS: 0 PATHOLOGY: none sent COMPLICATIONS: None Patient was transported to: same day Patient's condition: stable Implants: Mykel Clareon [id number] Indications: Progressive decreased vision due to cataract, right eye Procedure Description: CATARACT SURGERY OPERATIVE REPORT PREOPERATIVE DIAGNOSIS: Dense nuclear/cortical/posterior subcapsular cataract, right eye POSTOPERATIVE DIAGNOSIS: Same OPERATION: Cataract extraction using phacoemulsification with posterior chamber intraocular lens implant, right eye. IOL: IOL Retail Assistant Store Manager/Model: Mykel Clareon [id number] IOL Power: + 25.5 diopters IOL Serial Number: [id number] Optic Diameter: 6.0mm Haptic/Overall Diameter: 13.0mm PHACO INFO: Mykel Nutech Medicalurion Vision System with OZil and Active Fluidics Cumulative Dispersed Energy (CDE): 16.77 seconds SURGEON: Valerio Merrill MD, VANNESA ANESTHESIA: Monitored Anesthesia Care (MAC), with local sub-tenon's anesthetic infiltration COMPLICATIONS: None SPECIMENS: None INDICATIONS FOR PROCEDURE: The patient is a 63-year-old male with history of progressive decreased vision in his right eye secondary to the development of dense nuclear/cortical/posterior subcapsular cataract. He essentially has a mature white cataract with light perception vision. The option of cataract surgery was offered to the patient and he wished to proceed. See office notes for detailed information. PROCEDURE: The correct surgical eye was identified and marked as the right eye and the pupil was dilated in the preoperative area using mydriatics and cycloplegics. The dilated pupil size was 7.0 mm. Oral sedation was administered in the form of an Imprimis MKO Melt (midazolam 3mg/ketamine 25mg/ondansetron 2mg) x2. The patient was brought to the operating room where cardiopulmonary monitoring was instituted and surgical time-out was performed, confirming the correct operative eye and IOL power. Topical anesthesia was administered and ophthalmic povidone-iodine 5% was instilled into the conjunctival fornices. The woody-ocular area was prepped with Betadine 10% solution and draped in the usual sterile fashion for intraocular surgery, including an aperture drape. A Tegaderm transparent film dressing was cut in half and used to cover the lashes and lid margins. Care was taken to sequester the lashes and lid margins under the Tegaderm dressing. A lid speculum was placed between the lids of the operative eye and the Mykel LuxOR Revalia operating microscope was maneuvered into position. Humberto scissors were then used to make a conjunctival buttonhole approximately 6mm posterior to the limbus in the inferonasal quadrant. Blunt dissection was carried out to expose bare sclera, and a blunt-tipped sub-tenon?s anesthesia cannula was introduced and passed posteriorly along the globe where non-preserved plain lidocaine was injected into posterior sub-Tenon?s space. A sideport knife was used to make a paracentesis port. VisionBlue was injected into the anterior chamber and allowed to sit for 30 seconds. Intraocular phenylephrine/lidocaine was injected into the anterior chamber. The anterior chamber was then filled with viscoelastic. A keratome knife was used to construct a two--plane clear corneal tunnel extending 2.0mm into clear cornea. A flap was raised on the anterior capsule and capsulorhexis forceps were used to complete a continuous curvilinear capsulorhexis of 5.5 mm. Balanced salt solution was then used to perform cortical cleaving hydrodissection and nuclear hydrodelineation until the lens could be freely rotated within the capsular bag. The lens nucleus was then disassembled and removed within the capsular bag and iris plane using phacoemulsification. Residual cortical material was removed using the I/A handpiece. The posterior capsule was carefully polished to remove as much residual lens epithelial cells as safely possible. There was some dense posterior subcapsular plaque which could not be safely removed despite extensive polishing and vacuuming. The capsular bag was then inflated and the anterior chamber deepened with cohesive viscoelastic. The lens implant described above was inserted into the capsular bag using the Mykel Autonome Injector. A Kuglen hook was used to dial the IOL into position. Residual viscoelastic was then removed first from posterior to the IOL, then from the anterior chamber using the I/A handpiece. The lens implant was noted to center nicely within the capsular bag. The incisions were stromally hydrated, and the anterior chamber was reformed using BSS. Then 0.5cc of moxifloxacin 1.0mg/ml were injected into the capsular bag and anterior chamber. The incisions were checked with a Weck spear and found to be secure. Several drops of ophthalmic povidone-iodine 5% were then applied to the eye followed by two drops of combination steroid/NSAID/antibiotic solution. The drapes were removed and a clear plastic protective eye shield was placed over the eye. The patient was then returned to [facility] Day Surgery in stable condition.
--- NOTE | 2023-11-13 08:45 | W.ANESPOSTOP ---
Postoperative Evaluation Date, Time and Location Date Performed: 11/13/23 Time Performed: 08:45 Patient Location: Day Surgery Unit Vital Signs Most Recent Imported Vital Signs: Most Recent Vital Signs Temp Pulse Resp BP Pulse Ox 36.1 C L 93 H 18 125/76 93 11/13/23 08:28 11/13/23 08:28 11/13/23 08:28 11/13/23 08:28 11/13/23 08:28 Pain Score Most Recent Pain Score: Most Recent Pain Score Pain Level 0 11/13/23 08:28 Assessment Mental Status: Awake (Alert & Oriented to Patient Baseline) Airway and Respiratory Function: Patent airway with normal (patient baseline) respiratory exam Cardiovascular Function: Hemodynamically Stable Hydration Status: Adequately Hydrated Nausea & Vomiting: No Nausea or Vomiting Pain: Pt. Denies Any Pain Peripheral Nerve Block: Patient did not receive a nerve block Postoperative Comments:: Pt. doing great.
[2023-11-13 08:53] VITALS: BP 115/72; PULSE 93; RESP 16; TEMP 36.2; O2SAT 93
== END 2023-11-13 08:55 | disposition home or self-care (01) ==
PROVIDERS: PCP Nurse Practitioner Family; Visit Provider Ophthalmology
PROC: (CPT 66984; principal; 2023-11-13 07:30)
DX: F17.210 Nicotine dependence, cigarettes, uncomplicated; J44.9 Chronic obstructive pulmonary disease, unspecified; H25.041 Posterior subcapsular polar age-related cataract, right eye; H25.011 Cortical age-related cataract, right eye; H25.11 Age-related nuclear cataract, right eye
CPT/HCPCS: 66984; 00123; V2632; J2003

== ENCOUNTER 2023-12-11 01:50 | Outpatient (CLI) | payer OTHER, MEDICARE, SELFPAY ==
[2023-12-11 12:26] LABS: HCT 53.7 % (40.0-50.0); HGB 17.3 g/dL (13.5-17.5); MCH 31.3 pg (27.0-33.0); MCHC 32.2 % (32.0-36.0); MCV 97 fL (80-95); MPV 11.9 fL (8.0-11.0); Platelet Count 186 10^3/uL (130-400); RBC 5.53 10^6/uL (4.36-5.78); RDW 12.7 % (11.8-14.1); RDW-SD 45.7 fL; WBC 9.69 10^3/uL (4.4-10.8)
[2023-12-11 13:37] LABS: ALT 44 U/L (16-63); AST 27 U/L (15-37); Albumin 4.3 g/dL (3.4-5.0); Alkaline Phosphatase 92 U/L (46-116); Anion Gap 6.7 mmol/L (3-11); BUN 19 mg/dL (7-18); Bilirubin, Total 0.58 mg/dL (0.2-1.0); CO2 33.3 mmol/L (21.0-32.0); CREATININE 1.3 mg/dL (0.70-1.30); Calculated LDL 69 mg/dL (<100); Chloride 99 mmol/L (98-107); Cholesterol 126 mg/dL (<200); Estimated GFR 62.11 (mL/min/1.73m2); Glucose 109 mg/dL (74-106); HDL Cholesterol 43 mg/dL (40-60); Potassium 4.4 mmol/L (3.5-5.1); Sodium 139 mmol/L (136-145); TSH (W/Ref FT4) 2.09 uIU/mL (0.36-3.74); Total Protein 8.2 g/dL (6.4-8.2); Triglyceride 73 mg/dL (<150)
== END 2023-12-11 01:51 | disposition home or self-care (01) ==
LOC: LOS 01:51
PROVIDERS: PCP Student in an Organized Health Care Education/Training Program; Visit Provider Student in an Organized Health Care Education/Training Program
DX: R60.0 Localized edema (principal); E46 Unspecified protein-calorie malnutrition; E87.8 Other disorders of electrolyte and fluid balance, not elsewhere classified; T50.2X5A Adverse effect of carbonic-anhydrase inhibitors, benzothiadiazides and other diuretics, initial encounter; R53.83 Other fatigue; R06.02 Shortness of breath; Z91.89 Other specified personal risk factors, not elsewhere classified; Z13.220 Encounter for screening for lipoid disorders
CPT/HCPCS: 36415; 80053; 80061; 85027; 84443

== ENCOUNTER 2023-12-17 03:50 | Outpatient (CLI) | payer OTHER, MEDICARE, SELFPAY ==
[2023-12-17 12:47] LABS: Anion Gap 4.8 mmol/L (3-11); BUN 16 mg/dL (7-18); CO2 34.2 mmol/L (21.0-32.0); CREATININE 1.2 mg/dL (0.70-1.30); Calcium 9.6 mg/dL (8.5-10.1); Chloride 102 mmol/L (98-107); Estimated GFR 68.38 (mL/min/1.73m2); Glucose 103 mg/dL (74-106); Potassium 4.5 mmol/L (3.5-5.1); Sodium 141 mmol/L (136-145)
== END 2023-12-17 03:51 | disposition home or self-care (01) ==
LOC: LOS 03:50
PROVIDERS: PCP Student in an Organized Health Care Education/Training Program; Visit Provider Student in an Organized Health Care Education/Training Program
DX: I10 Essential (primary) hypertension (principal); R60.0 Localized edema; R60.9 Edema, unspecified; E46 Unspecified protein-calorie malnutrition; E87.8 Other disorders of electrolyte and fluid balance, not elsewhere classified; T50.2X5A Adverse effect of carbonic-anhydrase inhibitors, benzothiadiazides and other diuretics, initial encounter
CPT/HCPCS: 36415; 80048

== ENCOUNTER 2023-12-25 01:27 | Outpatient (CLI) | payer OTHER, MEDICARE, SELFPAY ==
[2023-12-25 12:35] LABS: Anion Gap 8.7 mmol/L (3-11); BUN 23 mg/dL (7-18); CO2 31.3 mmol/L (21.0-32.0); CREATININE 1.4 mg/dL (0.70-1.30); Calcium 9.7 mg/dL (8.5-10.1); Chloride 98 mmol/L (98-107); Estimated GFR 56.83 (mL/min/1.73m2); Glucose 98 mg/dL (74-106); Potassium 4.4 mmol/L (3.5-5.1); Sodium 138 mmol/L (136-145)
== END 2023-12-25 01:28 | disposition home or self-care (01) ==
LOC: LOS 01:27
PROVIDERS: PCP Student in an Organized Health Care Education/Training Program; Visit Provider Student in an Organized Health Care Education/Training Program
DX: I10 Essential (primary) hypertension (principal)
CPT/HCPCS: 36415; 80048

== ENCOUNTER 2024-01-12 03:20 | Outpatient (CLI) | payer OTHER, MEDICARE, SELFPAY ==
[2024-01-12 12:18] LABS: HGB 16.8 g/dL (13.5-17.5)
[2024-01-12 12:38] LABS: ALT 43 U/L (16-63); AST 28 U/L (15-37); Albumin 4.4 g/dL (3.4-5.0); Alkaline Phosphatase 90 U/L (46-116); Anion Gap 7.1 mmol/L (3-11); BUN 20 mg/dL (7-18); Bilirubin, Total 0.67 mg/dL (0.2-1.0); CO2 32.9 mmol/L (21.0-32.0); CREATININE 1.2 mg/dL (0.70-1.30); Calcium 9.8 mg/dL (8.5-10.1); Chloride 100 mmol/L (98-107); Estimated GFR 68.38 (mL/min/1.73m2); Glucose 99 mg/dL (74-106); Potassium 4.2 mmol/L (3.5-5.1); Sodium 140 mmol/L (136-145); Total Protein 8.5 g/dL (6.4-8.2)
== END 2024-01-12 03:21 | disposition home or self-care (01) ==
LOC: LOS 03:20
PROVIDERS: PCP Student in an Organized Health Care Education/Training Program; Visit Provider Student in an Organized Health Care Education/Training Program
DX: N17.9 Acute kidney failure, unspecified (principal); Z91.89 Other specified personal risk factors, not elsewhere classified
CPT/HCPCS: 36415; 80053; 85018